=== PATIENT | female | born 1960 | race Caucasian/White ===

== ENCOUNTER → 2017-10-05 09:54 | Outpatient (CLI) | payer OTHER, SELFPAY ==
--- NOTE | 2017-10-05 10:10 | DI.REPORT_ITS ---
SYMPTOM/DIAGNOSIS: FINGER TRAUMA, JAMMED FINGER W ONGOING SWELLING AND FAILUE RIGHT INDEX FINGER: There is no evidence of fracture or dislocation. No foreign body is identified. IMPRESSION: Negative right index finger.
== END ==
PROVIDERS: PCP Internal Medicine; Visit Provider Internal Medicine
DX: M79.642 Pain in left hand (principal); S69.82XA Other specified injuries of left wrist, hand and finger(s), initial encounter
CPT/HCPCS: 73140

== ENCOUNTER 2019-03-16 18:54 | Emergency (ER) | payer OTHER, SELFPAY ==
[2019-03-16] VITALS (19 sets, daily range): BP systolic 100–133; BP diastolic 63–97; PULSE 58–137; RESP 10–25; TEMP 36.7; O2SAT 98–100
[2019-03-16] MEDS: Metoprolol 5 MG/5 ML VIAL IVP (19:30)
[2019-03-16] MEDS: Normal Saline 1,000 ML 1000 ML IV (19:35)
[2019-03-16] MEDS: Normal Saline Flush 10 ML SYR IVP (19:38)
--- NOTE | 2019-03-16 19:39 | W.ED.GENAD ---
Discharge Plan Disposition Patient Disposition: HOME Condition: Stable Discharge Details Chief Complaint: Palpitatns Clinical Impression: Atrial fibrillation with rapid ventricular response Primary Care Provider: Jas Jenkins ED Provider: Efrain La Home Meds and New Rx's Prescriptions: New metoprolol succinate 100 mg tablet extended release 24 hr 100 mg PO DAILY Qty: 30 RF: 0 Discharge Instructions Instructions: Atrial Fibrillation (ED) Additional Instructions: follow up with your animal impersonator within 1 week if you have chest pain/pressure, difficulty breathing, feel lightheaded or feel your heart rate is persistently over 120 return to the emergency department for evaluation Medical Decision Making 58 yo female with known intermittent paroxysmal afib not on any meds comes in with complaints of feeling irregular heart beat since 1pm today and denies any chest pain/pressure, fevers, chills, vomit. She denies any heavy alcohol use and no prior hx of CAD per patient. She has a animal impersonator at [facility] who advised her to come here. She arrives in afib with rates of 120-140 hd stable otherwise. Will tx with IV maryam blockers, she requests metoprolol over dilt so will try this and obtian lab works. NO evidence of dvt on exam and no pleuritic chest pain so doubt PE and no hypoxia. pt's HR now in the 90's and feels improved, will order oral metoprolol and continue to monitor. pt's hr now consistently around 100 and hd stable. Will start on oral metoprolol, advised f/u with animal impersonator and return precautions given Differential Diagnosis Differential Diagnosis: afib, electrolyte abnormality Lab Data Lab results reviewed: Yes I reviewed the patient's lab results. ECG Data Attestation: I personally reviewed and interpreted this ECG (s) as follows: Prior ECG tracings: not available for review Interpretation: atrial fibrilattion, rate of 126, no acute st t wave ischemic changes 2nd ekg shows afib, rate of 97, no acute st t wave ischemic findings HPI General Mode of arrival: ambulatory. Date/Time Provider Initiated Documentation: 03/16/19 19:14. Limitations to Documentation: no limitations. Information obtained by: patient. History of Present Illness 58 year old F presents to the emergency department with the chief complaint of palpitations, described as moderate, Patient reports no radiation. Patient started experiencing this hour(s) (6) and it has been constant. No relieving factors improve symptom(s), No exacerbating factors reported . Patient notes no other symptoms.. Related Data Home Medications Medication Instructions Recorded Confirmed metoprolol succinate 100 mg PO DAILY #30 tab 03/16/19 Previous Rx's Medication Instructions Recorded metoprolol succinate 100 mg PO DAILY #30 tab 03/16/19 Allergies Allergy/AdvReac Type Severity Reaction Status Date / Time levofloxacin [From Levaquin] AdvReac Intermediate joint pain Unverified 03/16/19 19:10 General Stated Complaint: Palpitatns RALPH: 2 Review of Systems All systems reviewed & are unremarkable except as noted in HPI and below Constitutional Constitutional: Denies chills, Denies fever(s) and Denies weakness Cardiovascular Cardiovascular: Denies dyspnea Respiratory Respiratory: Denies cough and Denies dyspnea Gastrointestinal Gastrointestinal: Denies abdominal pain, Denies nausea and Denies vomiting Musculoskeletal Musculoskeletal: Denies joint swelling Neurologic Neurologic: Denies weakness PFSH Social History Smoking/Tobacco Use Status: Never Alcohol Intake: current Alcohol Intake frequency: 0-2 drinks per day Alcohol type: wine Drug use: Never Substance use type: does not use Do you feel safe at home: Yes Do you feel safe in your relationship?: Yes Exam Const General: no acute distress Orientation: alert HENMT Head: normal to inspection Ears: external ears normal General nose exam: external nose normal Mouth: moist mucous membranes Eyes General: appearance normal, both eyes and all related structures Neck Neck: normal visual inspection Resp Effort & Inspection: normal respiratory effort and able to speak in complete sentences Cardio Jugular venous pressure: no JVD Rate: tachycardic Skin General skin exam: no rashes or lesions noted Neuro General: alert and oriented x3 Extrem General: normal to inspection Psych Mental Status: mental status grossly normal Course Vital Signs Vital signs: Vital Signs Temperature 36.7 C 03/16/19 19:03 Pulse 137 H 03/16/19 19:03 Respiratory Rate 03/16/19 19:03 Blood Pressure 123/97 H 03/16/19 19:03 Pulse Oximetry 98 03/16/19 19:03 Temperature 36.7 C 03/16/19 19:03 Temperature Source Skin 03/16/19 19:03 Pulse 137 H 03/16/19 19:03 Respiratory Rate 03/16/19 19:03 Respiratory Effort 01/22/20 19:26 Blood Pressure 123/97 H 03/16/19 19:03 Pulse Oximetry 98 03/16/19 19:03 Oxygen Delivery Method Room Air 03/16/19 19:03 Oxygen Flow Rate 0 03/16/19 19:03 Pain Level 0 03/16/19 19:03 Comment 03/16/19 19:03 Critical Care Time Critical Care Time Critical Care Time: Yes Total Critical Care Time: 60 (minutes) Attestation: time spent reviewing labs, monitoring HD and giving IV maryam blockers in patient with afib with rvr and potential to deteriorate at any time
[2019-03-16 19:46] LABS: PTT Activated 24.7 sec (21.0-31.4); Prothrombin Time 10.2 sec (9.3-11.0)
[2019-03-16 19:52] LABS: Abs Immature Grans 0.02 k/cumm (0.0-0.09); Absolute Basophil Count 0.03 k/cumm (0.0-0.2); Absolute Eosinophil Count 0.03 k/cumm (0.0-0.7); Absolute Lymphocyte Count 1.32 k/cumm (1.2-3.4); Absolute Monocyte Count 0.63 k/cumm (0.11-0.7); Absolute Neutrophil Count 4.65 k/cumm (1.2-6.7); Basophils % 0.4; Eosinophils % 0.4; HCT 41.1 % (36.0-46.0); HGB 13.8 g/dL (12.0-15.5); Immature Grans % 0.3 %; Lymphocytes % 19.8; Mean Corp. HGB Concentration 33.6 g/dL (32.0-36.0); Mean Corpuscular Hemoglobin 30.7 pg (27.0-33.0); Mean Corpuscular Volume 91.5 fL (80-95); Monocytes % 9.4; Neutrophils % 69.7; Platelet Count 267 x1000/uL (130-400); RBC 4.49 m/cumm (4.00-5.20); RBC Distribution Width 12.8 % (11.7-14.6); White Blood Cell Count 6.68 k/cumm (4.4-10.8)
[2019-03-16 19:55] LABS: ALT 24 U/L (14-59); AST 17 U/L (15-37); Albumin 4.4 g/dL (3.4-5.0); Alkaline Phosphatase 108 U/L (46-116); Anion Gap 10.1 mmol/L (3-11); BUN 18 mg/dL (7-18); Bilirubin, Total 0.5 mg/dL (0.2-1.0); CO2 27.9 mmol/L (21.0-32.0); CREATININE 0.69 mg/dL (0.55-1.02); Calcium 9.3 mg/dL (8.5-10.1); Chloride 103 mmol/L (98-107); Glucose 128 mg/dL (74-106); Potassium 3.9 mmol/L (3.5-5.1); Sodium 141 mmol/L (136-145); Total Protein 7.4 g/dL (6.4-8.2)
[2019-03-16 19:56] LABS: Troponin I < 0.05 ng/Ml (<0.06)
[2019-03-16] MEDS: Metoprolol CR 50 MG TABCR (20:00)
== END 2019-03-16 20:50 | disposition home or self-care (01) ==
PROVIDERS: Emergency Provider Emergency Medicine; PCP Internal Medicine
DX: I48.91 Unspecified atrial fibrillation (principal)
CPT/HCPCS: 80053; 93005; 96361; 96374; 99285; 99291; 83735; 84484; 85025; 85610; 85730; 93010; 99284